=== PATIENT | female | born 1970 | race Native Hawaiian/Other Pacific Islander ===

== ENCOUNTER 2016-11-10 16:04 | Outpatient (CLI) | payer BC ==
[~2016-11-10 16:04] MED LIST: TIZA4TAB5 PO; TOPAMAX50 MG OR
== END 2016-11-10 17:04 | disposition home or self-care (01) ==
LOC: RESP 16:04
DX: G64 Other disorders of peripheral nervous system (principal)
CPT/HCPCS: 95913

== ENCOUNTER 2021-01-12 15:48 | Outpatient (CLI) | payer OTHER | END 2021-01-12 19:29 | disposition home or self-care (01) | LOC: INF 15:48 | PROVIDERS: ATTEND Internal Medicine | DX: Z23 Encounter for immunization (principal) | CPT/HCPCS: 96372 ==

== ENCOUNTER 2022-04-07 22:43 | Emergency (ER) | payer OTHER ==
[~2022-04-07] VITALS: Ht 175.3 cm; Wt 136.1 kg
[2022-04-07 23:34] LABS: PLATELET COUNT 198 K/uL (152-353)
[2022-04-08 00:30] VITALS: BP 142/85; TEMP 99
== END 2022-04-08 00:35 | disposition home or self-care (01) ==
LOC: ED 22:43
PROVIDERS: Hospitalist
DX: M54.59 Other low back pain (principal); G89.29 Other chronic pain; R50.9 Fever, unspecified; N39.0 Urinary tract infection, site not specified; I10 Essential (primary) hypertension; Z20.822 Contact with and (suspected) exposure to COVID-19; F17.210 Nicotine dependence, cigarettes, uncomplicated
CPT/HCPCS: 36415; 80048; 81000; 85027; 87040; 87077; 87086; 87088; 87186; 87502; 87635; 87651; 96372; 99283; J0696; J1885; J2405; J2930; U0003

== ENCOUNTER 2023-06-26 14:56 | Outpatient (CLI) | payer OTHER | END 2023-06-26 19:26 | disposition home or self-care (01) | LOC: MAMMO 14:56 | PROVIDERS: ATTEND Nurse Practitioner Family | DX: Z12.31 Encounter for screening mammogram for malignant neoplasm of breast (principal) ==